=== PATIENT | female | born 1995 | race Caucasian/White ===

== ENCOUNTER 2019-01-28 06:18 | Emergency (ER) | payer BC ==
[~2019-01-28] VITALS: Ht 160 cm; Wt 71.7 kg
--- NOTE | 2019-01-28 06:48 | PHYS DOC ---
Past Medical History Past Medical History: No Pertinent History, GERD Past Surgical History: No Surgical History Alcohol Use: None Drug Use: None Adult General Chief Complaint Chief Complaint: HEADACHE HPI HPI Patient is a 23 year old female who presents with "migraine" that started yesterday. She has been getting almost daily headaches for a while, that she feels are related to needing new glasses which she has not obtain due to financial constraints. She reports that she now has insurance and will be getting the glasses. This particular headache started yesterday at approximately 1300 and she had to be sent home from work 1430 due to crying. Reports that is bitemporal as well as in the center of her for head. There is some nausea, no vomiting, and no fever. Patient denies that this is the worst headache of her life. She did get some relief with Excedrin Migraine but it was transient and short-lived. Denies any neck stiffness. Denies any change in vision. Denies any weakness in an arm or a leg.[] Review of Systems Review of Systems Constitutional: Denies fever or chills [] Eyes: Denies change in visual acuity, redness, or eye pain [] HENT: Denies nasal congestion or sore throat [] Respiratory: Denies cough, reports occasional shortness of breath that is due to her reflux. She has not obtained a new inhaler due to financial constraints.[ ] Cardiovascular: No chest pain or palpitations[] GI: Denies abdominal pain, nausea, vomiting, bloody stools or diarrhea [] : Denies dysuria or hematuria [] Musculoskeletal: Denies back pain or joint pain [] Integument: Denies rash or skin lesions [] Neurologic: Denies focal weakness or sensory changes, see history of present illness [] Endocrine: Denies polyuria or polydipsia [] All other systems were reviewed and found to be within normal limits, except as documented in this note. Current Medications Current Medications Current Medications Medications (Trade) Dose Ordered Sig/Melissa Start Time Stop Time Status Last Admin Dose Admin Ketorolac Tromethamine (Toradol 15mg Vial) 15 mg 1X ONCE 01/28/19 07:00 01/28/19 07:01 DC 01/28/19 08:19 15 MG Metoclopramide HCl (Reglan Vial) 10 mg 1X ONCE 01/28/19 07:00 01/28/19 07:01 DC 01/28/19 07:42 10 MG Allergies Allergies Allergies Coded Allergies Type Severity Reaction Last Updated Verified No Known Drug Allergies 04/06/15 No Physical Exam Physical Exam Constitutional: Well developed, well nourished, no acute distress, non-toxic appearance. [] HENT: Normocephalic, atraumatic, bilateral external ears normal, oropharynx moist, no oral exudates, nose normal. [] Eyes: PERRLA, EOMI, conjunctiva normal, no discharge. [] Neck: Normal range of motion, no tenderness, supple, no stridor. [] Cardiovascular:Heart rate regular rhythm, no murmur [] Lungs & Thorax: Bilateral breath sounds clear to auscultation [] Abdomen: Not examined[] Skin: Warm, dry, no erythema, no rash. [] Back: No tenderness, no CVA tenderness. [] Extremities: No tenderness, no cyanosis, no clubbing, ROM intact, no edema. [] Neurologic: Alert and oriented X 3, normal motor function, normal sensory function, no focal deficits noted. Normal rapid repetitive and alternating movements[] Psychologic: Affect normal, judgement normal, mood normal. [] Current Patient Data Vital Signs Vital Signs Date Time Temp Pulse Resp B/P (MAP) Pulse Ox O2 Delivery O2 Flow Rate FiO2 01/28/19 06:30 97.8 72 16 114/75 (88) 100 Room Air 97.8 Lab Values Laboratory Tests Test 01/28/19 08:09 POC Urine HCG, Qualitative Hcg negative (Negative) EKG EKG [] Radiology/Procedures Radiology/Procedures [] Course & Med Decision Making Course & Med Decision Making Pertinent Labs and Imaging studies reviewed. (See chart for details) ED course: Patient arrived, was placed in bed, in tolerated exam well. Her ED course was prolonged due to inability to provide a urine sample to ensure she was not before providing NSAIDs. She was able to produce this and the NSAIDs were given. She reported feeling improved with reference to her pain. Patient was discharged in improved condition. Medical decision making: There does not appear to be evidence of intractable pain, stroke syndrome or intracranial bleed, no evidence of preeclampsia given that she is not . Uncertain as to whether this is truly a migraine given that she has almost daily headaches without the photophobia. This can be better followed by her primary care physician and this was discussed with the patient who voiced understanding.[] Dragon Disclaimer Dragon Disclaimer This electronic medical record was generated, in whole or in part, using a voice recognition dictation system. Departure Departure Impression: Primary Impression: Headache Referrals: UNKNOWN PCP NAME (PCP) Patient Instructions: General Headache Without Cause Additional Instructions: Follow-up with your regular doctor in 2 days. He do not have regular doctor, list of local clinics will be provided for you. Return to the ER if worsening pain, difficulty seeing, fever of more than 101, or any other concerns. Scripts Lansoprazole (PREVACID) 15 Mg Capsule.dr 15 MG PO DAILY, #30 CAP Prov: CHRISSIE MICHELE DO 01/28/19 Meloxicam (MELOXICAM) 7.5 Mg Tablet 7.5 MG PO DAILY, #20 TAB Prov: CHRISSIE MICHELE DO 01/28/19 Albuterol Sulfate (VENTOLIN HFA INHALER) 18 Gm Hfa.aer.ad 2 PUFF INH Q4HRS for FOR ASTHMA, #1 INHALER 0 Refills Prov: CHRISSIE MICHELE DO 01/28/19 Problem Qualifiers Primary Impression: Headache Headache type: unspecified Headache chronicity pattern: unspecified pattern Intractability: not intractable Qualified Codes: R51 - Headache CHRISSIE MICHELE DO Jan 28, 2019 06:48
[2019-01-28] MEDS ORDERED: METOCLOPRAMIDE HCL 10 MG/2 ML VIAL. IM ONE (07:00)
[2019-01-28] MEDS ORDERED: KETOROLAC 15 MG/ML VIAL. IM ONE (07:00)
[2019-01-28] MEDS ORDERED: LANS15CA78 PO (07:05)
[2019-01-28] MEDS ORDERED: MELO7.5T29 PO (07:05)
[2019-01-28] MEDS ORDERED: VENTOLIN HFA18 GM INH (07:05)
[2019-01-28 08:30] VITALS: BP 102/48
== END 2019-01-28 08:40 | disposition home or self-care (01) ==
LOC: ER 06:18
DX: G43.909 Migraine, unspecified, not intractable, without status migrainosus (principal); R06.02 Shortness of breath; K21.9 Gastro-esophageal reflux disease without esophagitis
CPT/HCPCS: 81025; 96372; 99283; J1885; J2765

== ENCOUNTER 2019-04-12 04:29 | Emergency (ER) | payer BC, SELFPAY ==
[~2019-04-12] VITALS: Ht 162.6 cm; Wt 72.6 kg
[~2019-04-12 04:29] MED LIST: LANS15CA78 PO; MELO7.5T29 PO; VENTOLIN HFA18 GM INH
[2019-04-12 04:43] VITALS: BP 139/89
[2019-04-12] MEDS ORDERED: ALBU2.5V8 INH (04:48)
[2019-04-12] MEDS ORDERED: PRED50TA PO (04:48)
[2019-04-12] MEDS ORDERED: IPRATRPIUM/ALBUTEROL 0.5/2.5MG 3 ML NEBU. NEB ONE ×2 (05:15→06:00)
--- NOTE | 2019-04-12 06:47 | PHYS DOC ---
Past Medical History Past Medical History: GERD Past Surgical History: No Surgical History Alcohol Use: None Drug Use: None Adult General Chief Complaint Chief Complaint: ASTHMA HPI HPI Patient is a 24 year old history of asthma presents with seasonal allergies has had some sinus congestion cough mostly dry the last 24 hours has had some chest tightness center of the chest worse with deep breathing also with coughing and shortness of breath has been increasing as well she ran out of her inhaler symptoms are moderate slowly worsening with time. Review of Systems Review of Systems Constitutional: Denies fever or chills [] Eyes: Denies change in visual acuity, redness, or eye pain [] HENT: : Denies dysuria or hematuria [] Musculoskeletal: Denies back pain or joint pain [] Integument: Denies rash or skin lesions [] Neurologic: Denies headache, focal weakness or sensory changes [] Endocrine: Denies polyuria or polydipsia [] All other systems were reviewed and found to be within normal limits, except as documented in this note. Current Medications Current Medications Current Medications Medications (Trade) Dose Ordered Sig/Melissa Start Time Stop Time Status Last Admin Dose Admin Albuterol/ Ipratropium (Duoneb) 3 ml 1X ONCE 04/12/19 06:00 04/12/19 06:01 DC 04/12/19 05:34 3 ML Allergies Allergies Allergies Coded Allergies Type Severity Reaction Last Updated Verified No Known Drug Allergies 04/06/15 No Physical Exam Physical Exam Constitutional: Well developed, well nourished, no acute distress, non-toxic appearance. [] HENT: Normocephalic, atraumatic, bilateral external ears normal, oropharynx moist, no oral exudates, nose normal. [] Eyes: PERRLA, EOMI, conjunctiva normal, no discharge. [] Neck: Normal range of motion, no tenderness, supple, no stridor. [] Cardiovascular:Heart rate regular rhythm, no murmur [] Lungs & Thorax: Patient has diffuse wheezing bilaterally speak full sentences Abdomen: Bowel sounds normal, soft, no tenderness, no masses, no pulsatile masses. [] Skin: Warm, dry, no erythema, no rash. [] Back: No tenderness, no CVA tenderness. [] Extremities: No tenderness, no cyanosis, no clubbing, ROM intact, no edema. [] Neurologic: Alert and oriented X 3, normal motor function, normal sensory function, no focal deficits noted. [] Psychologic: Affect normal, judgement normal, mood normal. [] Current Patient Data Vital Signs Vital Signs Date Time Temp Pulse Resp B/P (MAP) Pulse Ox O2 Delivery O2 Flow Rate FiO2 04/12/19 05:37 99 Room Air 04/12/19 04:43 98.0 101 18 139/89 (106) 98.0 EKG EKG [] Radiology/Procedures Radiology/Procedures [] Course & Med Decision Making Course & Med Decision Making Pertinent Labs and Imaging studies reviewed. (See chart for details) []Patient feels better after 2 nebulizers in the emergency room oxygen saturation remains in the mid 90s prescription for prednisone and Provera were given. Asthma exacerbation in the setting of seasonal allergies Draglam Disclaimer Draglam Disclaimer This electronic medical record was generated, in whole or in part, using a voice recognition dictation system. Departure Departure Impression: Primary Impression: Wheezing Disposition: 01 HOME, SELF-CARE Condition: STABLE Patient Instructions: Bronchospasm, Adult Scripts Albuterol Sulfate (Proair Hfa) 8.5 Gm Hfa.aer.ad 1 PUFF INH PRN Q6HRS PRN for SHORTNESS OF BREATH for 5 Days, #1 INHALER Prov: TAL MELLO MD 04/12/19 Prednisone (PREDNISONE) 50 Mg Tablet 1 TAB PO DAILY, #5 TAB Prov: TAL MELLO MD 04/12/19 TAL MELLO MD April 12, 2019 06:47
== END 2019-04-12 06:01 | disposition home or self-care (01) ==
LOC: ER 04:29
DX: R06.2 Wheezing (principal); R05 Cough; R09.81 Nasal congestion; R07.89 Other chest pain; R06.02 Shortness of breath; K21.9 Gastro-esophageal reflux disease without esophagitis
CPT/HCPCS: 94640; 99284; J7620